=== PATIENT | male | born 1975 | race Caucasian/White ===

== ENCOUNTER 2016-08-18 15:00 | Emergency (ER) | payer SELFPAY | END 2016-08-18 15:35 | disposition home or self-care (01) | LOC: MADERS 15:00 | DX: R10.13 Epigastric pain (principal) | CPT/HCPCS: 99283 ==

== ENCOUNTER 2016-12-25 14:32 | Emergency (ER) | payer SELFPAY ==
[~2016-12-25 14:32] MED LIST: Sodium Chloride 0.9% 1,000 ML BAG ONE; Sodium Chloride 0.9% 100 ML BAG ONE
[2016-12-25] MEDS ORDERED: Pantoprazole 40 MG VIAL ONE (15:13)
[2016-12-25] MEDS ORDERED: Ondansetron HCl/PF 4 MG/2 ML Vial ONE (15:13)
[2016-12-25] MEDS ORDERED: Mag-Al Plus 1200 MG/1200 MG/120 MG/30 ML UDCUP ONE (15:13)
--- NOTE | 2016-12-25 15:26 | RAD ---
TWO VIEWS CHEST: HISTORY: Right-sided chest pain for 4 days. Myocardial infarction. DATE: 12/25/16. FINDINGS: Two views chest demonstrate the lungs to be well aerated. No evidence of active intrathoracic disea se is seen. No evidence of effusions, pneumonia, or pneumothorax seen. IMPRESSION: Normal 2 views chest. POS: [facility]
[2016-12-25 15:33] LABS: ALT (SGPT) 25 U/L (8-55); AST (SGOT) 22 U/L (5-34); Albumin 3.7 g/dL (3.5-5.0); Alkaline Phosphatase 66 U/L (40-150); Anion Gap 16 mmol/L (10-20); BUN (Urea Nitrogen) 20 mg/dL (8.9-20.6); Bilirubin, Total Less than 0.3 mg/dL (0.2-1.2); Calc. Creatinine Clearance 0 mL/min (70-130); Calcium 8.9 mg/dL (7.8-10.44); Carbon Dioxide 21 mmol/L (22-29); Chloride 110 mmol/L (98-107); Estimated GFR-MDRD 46; Globulin 2.7 g/dL (2.4-3.5); Glucose 111 mg/dL (70-105); Lipase 38 U/L (8-78); Potassium 3.8 mmol/L (3.5-5.1); Protein, Total 6.4 g/dL (6.0-8.3); Sodium 143 mmol/L (136-145)
[2016-12-25 15:34] LABS: Troponin I Less than 0.010 ng/mL (< 0.028)
[2016-12-25 15:39] LABS: #Basophils 0.1 thou/uL (0.0-0.2); #Eosinphils 0.2 thou/uL (0.0-0.7); #Lymphocytes 2.5 thou/uL (1.20-3.40); #Monocytes 0.8 thou/uL (0.11-0.59); #Neutrophils 5.6 thou/uL (1.40-6.50); %Basophils 1.5 % (0.0-1.0); %Eosinophils 1.8 % (0.0-10.0); %Lymphocytes 27.4 % (21.0-51.0); %Neutrophils 60.3 % (42.0-75.0); Hemoglobin 14.1 g/dL (14.0-18.0); Mean Corpuscular HGB CONC 33.3 g/dL (32.0-36.0); Mean Corpuscular Hemoglobin 30.8 pg (27.0-31.0); Mean Corpuscular Volume 92.4 fl (80.0-94.0); Platelet Count 197 thou/uL (130-400); RBC Distribution Width 12.4 % (11.5-14.5); Red Blood Cell (RBC) Count 4.57 mill/uL (4.70-6.10); White Blood Cell (WBC) Count 9.2 thou/uL (4.8-10.8)
[2016-12-25 15:40] LABS: CKMB 2.6 ng/mL (0-6.6)
[2016-12-25 15:51] LABS: Bilirubin Negative (Negative); Blood, Urine Negative (Negative); Clarity Clear (Clear); Glucose, Urine (Dipstick) Negative (Negative); Leukocyte Negative (Negative); Nitrite Negative (Negative); Protein, Urine (Dipstick) Negative (Neg-Trace); pH, Urine 7.5 (5.0-9.0)
[2016-12-25 15:58] LABS: Bacteria/HPF Rare-Few HPF (None Seen); Crystals/HPF 3+ AMORPH PHOS HPF (Negative); RBC/HPF None Seen HPF (0-3); Squamous Epithelial 0-3 HPF (0-3); WBC/HPF None Seen HPF (0-3)
--- NOTE | 2016-12-25 16:20 | CT ---
CT ABDOMEN AND PELVIS WITHOUT CONTRAST: 12/25/16 HISTORY: Right sided abdominal pain. FINDINGS: The absence of oral and IV contrast reduces the sensitivity of the exam, particularly for the evalua tion of solid organs and bowel. The lung bases are clear. No free air or free fluid is seen in the abdomen or pelvis. No calcified g allstones are noted. A normal appearing appendix is present. The small bowel loops are not abnormall y dilated. No calculi is seen in the kidneys, ureters or the urinary bladder. No hydroureterone phrosis is seen on either side. There are vascular calcifications without evidence of aneurysmal dil atation of the abdominal aorta. There are degenerative changes at the lumbosacral junction. IMPRESSION: No CT evidence of urinary tract calculi/obstruction or appendicitis. POS: [facility]
[2016-12-25] MEDS ORDERED: Promethazine HCl 25 MG/ML VIAL ONE (16:49)
== END 2016-12-25 17:00 | disposition home or self-care (01) ==
LOC: MADERS 14:32
DX: R10.11 Right upper quadrant pain (principal); R10.13 Epigastric pain; R11.2 Nausea with vomiting, unspecified; K21.9 Gastro-esophageal reflux disease without esophagitis; Z79.899 Other long term (current) drug therapy
CPT/HCPCS: 71020; 74176; 80053; 81001; 82553; 83690; 83880; 84484; 85025; 93005; 96361; 96374; 96375; C9113; J2405; J2550; J7050

== ENCOUNTER 2017-06-08 18:41 | Emergency (ER) | payer SELFPAY | END 2017-06-08 20:14 | disposition home or self-care (01) | LOC: MADERS 18:41 | DX: J02.9 Acute pharyngitis, unspecified (principal); K21.9 Gastro-esophageal reflux disease without esophagitis | CPT/HCPCS: 87081; 87430; 99283 ==

== ENCOUNTER 2017-09-02 09:49 | Emergency (ER) | payer SELFPAY ==
[2017-09-02] MEDS ORDERED: Dicyclomine 10 MG CAP ONE (10:51)
== END 2017-09-02 10:55 | disposition home or self-care (01) ==
LOC: MADERS 09:49
DX: R10.84 Generalized abdominal pain (principal)
CPT/HCPCS: 99283

== ENCOUNTER 2017-11-04 11:04 | Emergency (ER) | payer SELFPAY ==
[~2017-11-04 11:04] MED LIST changes: -Sodium Chloride 0.9% 100 ML BAG ONE
[2017-11-04 11:53] LABS: #Basophils 0.1 thou/uL (0.0-0.2); #Lymphocytes 2.6 thou/uL (1.20-3.40); #Monocytes 0.9 thou/uL (0.11-0.59); #Neutrophils 8.2 thou/uL (1.40-6.50); %Basophils 1.2 % (0.0-1.0); %Eosinophils 0.3 % (0.0-10.0); %Lymphocytes 22.1 % (21.0-51.0); %Monocytes 7.3 % (0.0-10.0); Hemoglobin 14.7 g/dL (14.0-18.0); Mean Corpuscular HGB CONC 33.3 g/dL (32.0-36.0); Mean Corpuscular Hemoglobin 29.5 pg (27.0-31.0); Mean Corpuscular Volume 88.4 fL (78.0-98.0); Mean Platelet Volume 8.1 fL (7.4-10.4); Platelet Count 216 thou/uL (130-400); Red Blood Cell (RBC) Count 4.99 mill/uL (4.70-6.10); White Blood Cell (WBC) Count 11.9 thou/uL (4.8-10.8)
[2017-11-04 12:06] LABS: ALT (SGPT) 44 U/L (8-55); AST (SGOT) 70 U/L (5-34); Albumin 4.3 g/dL (3.5-5.0); Alkaline Phosphatase 76 U/L (40-150); Anion Gap 15 mmol/L (10-20); BUN (Urea Nitrogen) 15 mg/dL (8.9-20.6); Bilirubin, Total 0.7 mg/dL (0.2-1.2); CK (CPK) 2246 U/L (30-200); Calc. Creatinine Clearance 0 mL/min (70-130); Calcium 9.6 mg/dL (7.8-10.44); Carbon Dioxide 20 mmol/L (22-29); Chloride 110 mmol/L (98-107); Estimated GFR-MDRD Greater than 90; Glucose 105 mg/dL (70-105); Magnesium 2.4 mg/dL (1.6-2.6); Potassium 3.7 mmol/L (3.5-5.1); Protein, Total 7.3 g/dL (6.0-8.3); Sodium 141 mmol/L (136-145)
[2017-11-04 12:08] LABS: Troponin I 0.019 ng/mL (< 0.028)
[2017-11-04 12:14] LABS: CKMB 20.6 ng/mL (0-6.6)
[2017-11-04 12:38] LABS: Bilirubin Negative (Negative); Blood, Urine Negative (Negative); Clarity Clear (Clear); Glucose, Urine (Dipstick) Negative (Negative); Leukocyte Negative (Negative); Nitrite Negative (Negative); Protein, Urine (Dipstick) Trace mg/dL (Neg-Trace); Urobilinogen 0.2 mg/dL (0.2-1.0)
[2017-11-04] MEDS ORDERED: Acetaminophen 500 MG TAB ONE (12:49)
[2017-11-04] MEDS ORDERED: Ketorolac Tromethamine 30 MG/ML VIAL ONE (12:49)
== END 2017-11-04 18:14 | disposition home or self-care (01) ==
LOC: MADERS 11:04
DX: M60.9 Myositis, unspecified (principal); F41.9 Anxiety disorder, unspecified
CPT/HCPCS: 36415; 80053; 81003; 82550; 82553; 83735; 84484; 85025; 96361; 96374; J1885; J7050

== ENCOUNTER 2018-01-09 15:00 | Emergency (ER) | payer SELFPAY ==
[2018-01-09] MEDS ORDERED: Simethicone Chewable 80 MG TAB ONE (15:57)
== END 2018-01-09 16:00 | disposition home or self-care (01) ==
LOC: MADERS 15:00
DX: K21.9 Gastro-esophageal reflux disease without esophagitis (principal); R14.2 Eructation; F41.9 Anxiety disorder, unspecified; Z79.899 Other long term (current) drug therapy
CPT/HCPCS: 99283

== ENCOUNTER 2018-02-08 20:08 | Emergency (ER) | payer SELFPAY ==
--- NOTE | 2018-02-08 21:49 | RAD ---
NECK TWO VIEWS: 02/08/2018 HISTORY: Evaluate for a foreign body. COMPARISON: None. FINDINGS: The epiglottis appears unremarkable. No obvious radiopaque foreign body is seen. The osseous struct ures are grossly unremarkable. No prevertebral soft tissue swelling. IMPRESSION: No obvious radiopaque foreign body. CT examination of the neck would be the study of choice to evalu ate for a foreign body, however, if clinically warranted. POS: [facility]
== END 2018-02-08 21:31 | disposition home or self-care (01) ==
LOC: MADERS 20:08
DX: R09.89 Other specified symptoms and signs involving the circulatory and respiratory systems (principal); F41.9 Anxiety disorder, unspecified
CPT/HCPCS: 70360